=== PATIENT | female | born 1955 | race Caucasian/White ===

== ENCOUNTER 2021-02-12 08:52 | Outpatient (CLI) | payer OTHER, SELFPAY ==
--- NOTE | ~2021-02-12 | XR_ITS ---
EXAMINATION: XR wrist LT min 3V DATE: 02/12/2021 10:00 INDICATION: Left wrist pain. TECHNIQUE: 4 views of left wrist were obtained. COMPARISON: None. FINDINGS: Bone alignment is normal. No fracture. There is mild osteoarthritis of triscaphe joint and severe osteoarthritis of first carpometacarpal joint. IMPRESSION: 1. Polyarticular osteoarthritis. Reviewed, dictated and finalized at location A.
--- NOTE | ~2021-02-12 | XR_ITS ---
EXAMINATION: XR ankle RT min 3V DATE: 02/12/2021 10:01 INDICATION: Medial right ankle pain. TECHNIQUE: 4 views of right ankle were obtained. COMPARISON: None. FINDINGS: Pes planus is noted. No acute fracture. There is heterotopic ossification dorsal to the godwin onavicular joint. There is an enthesophyte at plantar aspect of calcaneal tuberosity. There is ankle soft tissue swelling. IMPRESSION: 1. Pes planus. Reviewed, dictated and finalized at location A. IMPRESSION: 1. Pes planus.
--- NOTE | ~2021-02-12 | XR_ITS ---
EXAMINATION: XR foot RT min 3V DATE: 02/12/2021 10:01 INDICATION: Medial ankle and foot pain. TECHNIQUE: 4 views of right foot were obtained. COMPARISON: None. FINDINGS: Pes planus is noted. No fracture. There is mild osteoarthritis of first metatarsophalangeal joint and some of the midfoot joints and interphalangeal joints. There is moderate osteoarthritis of first interphalangeal joint. There is heterotopic ossification dorsal to the talonavicular joint. Th ere is an enthesophyte at plantar aspect of calcaneal tuberosity. IMPRESSION: 1. Polyarticular osteoarthritis. 2. Pes planus. Reviewed, dictated and finalized at location A.
--- NOTE | ~2021-02-12 | XR_ITS ---
XR ankle LT min 3V DATE: 02/12/2021 10:01 INDICATION: Medial ankle pain TECHNIQUE: 4 views COMPARISON: None FINDINGS: Prominent plantar and moderately prominent posterior calcaneal enthesopathy. Pes planus. Degenerative changes of the tibiotalar and tarsal joints. Cannot exclude subtle cortical fracture at the inferior tip of the lateral malleolus. No fracture or dislocation of the ankle or disruption of the ankle mortise is noted otherwise. No per iosteal reaction or bone destruction. IMPRESSION: Cannot exclude subtle cortical fracture at the inferior tip of the lateral malleolus; oth erwise no fracture or dislocation Pes planus Plantar and posterior calcaneal enthesopathy Degenerative changes Reviewed, dictated and finalized at location A. IMPRESSION: Cannot exclude subtle cortical fracture at the inferior tip of the lateral malleolus; otherwise no fracture or dislocation Pes planus Plantar and posterior calcaneal enthesopathy Degenerative changes
--- NOTE | ~2021-02-12 | XR_ITS ---
EXAMINATION: XR wrist RT min 3V DATE: 02/12/2021 10:00 INDICATION: Right wrist pain. TECHNIQUE: 4 views of right wrist were obtained. COMPARISON: None. FINDINGS: Bone alignment is normal. No fracture. Joint spaces are normal. IMPRESSION: 1. Normal right wrist. Reviewed, dictated and finalized at location A. IMPRESSION: 1. Normal right wrist.
--- NOTE | ~2021-02-12 | XR_ITS ---
EXAMINATION: XR hand RT min 3V DATE: 02/12/2021 09:59 INDICATION: Right hand pain. TECHNIQUE: 3 views of right hand were obtained. COMPARISON: None. FINDINGS: There is radial subluxation of second and third distal phalanges with respect to the middle phalanges. No fracture. There is mild osteoarthritis of first and second metacarpophalangeal joints and some the interphalangeal joints. There is severe osteoarthritis of first interphalangeal joint an d second and third distal interphalangeal joints and moderate osteoarthritis of third and fourth dist al interphalangeal joints. IMPRESSION: 1. Polyarticular osteoarthritis. Reviewed, dictated and finalized at location A.
--- NOTE | ~2021-02-12 | XR_ITS ---
XR foot LT min 3V DATE: 02/12/2021 10:02 INDICATION: Medial pain TECHNIQUE: 4 views COMPARISON: None FINDINGS: Pes planus. Prominent plantar and mild posterior calcaneal enthesopathy. Degenerative changes at the tibiotalar and tarsal joints, first metatarsophalangeal joint and first i nterphalangeal joint. No fracture or dislocation, periosteal reaction or bone destruction is evident. IMPRESSION: Pes planus Plantar and posterior calcaneal enthesopathy Osteoarthritis Reviewed, dictated and finalized at location A.
--- NOTE | ~2021-02-12 | XR_ITS ---
EXAMINATION: XR hand LT min 3V DATE: 02/12/2021 09:59 INDICATION: Left hand pain. TECHNIQUE: 3 views of left hand were obtained. COMPARISON: None. FINDINGS: Bone alignment is normal. No fracture. There is severe osteoarthritis of first carpometacar pal joint and mild osteoarthritis of first and second metacarpophalangeal joints and many of the inte rphalangeal joints. There is severe osteoarthritis of first interphalangeal joint and second and thir d distal interphalangeal joints. IMPRESSION: 1. Polyarticular osteoarthritis. Reviewed, dictated and finalized at location A.
== END 2021-02-12 08:53 | disposition home or self-care (01) ==
LOC: CHSIMG 08:55
PROVIDERS: PCP Internal Medicine; Visit Provider Internal Medicine
DX: M79.642 Pain in left hand (principal); M79.641 Pain in right hand; M25.572 Pain in left ankle and joints of left foot; M25.571 Pain in right ankle and joints of right foot
CPT/HCPCS: 73110; 73130; 73610; 73630